=== PATIENT | female | born 1970 | race Caucasian/White ===

== ENCOUNTER 2017-11-04 15:46 | Inpatient (IN) | payer OTHER ==
[2017-11-04] MEDS ORDERED: diphenhydrAMINE 25 MG CAP PO PRN (18:05)
[2017-11-04] MEDS ORDERED: Ibuprofen 200 MG TAB PO PRN (18:05)
[2017-11-04] MEDS: HYDROcodone/Acetaminophen 10/325 mg Tablet PO PRN (19:22)
[2017-11-04 20:53] VITALS: BMI 36.0
[2017-11-04] MEDS ORDERED: Enoxaparin Sodium 100 MG/ML SYRINGE SC SCH (21:45)
[2017-11-04 21:52] LABS: Bilirubin Negative (Negative); Blood, Urine Trace (Negative); Clarity Clear (Clear); Glucose, Urine (Dipstick) Negative (Negative); Leukocyte Trace (Negative); Nitrite Positive (Negative); Protein, Urine (Dipstick) Negative (Neg-Trace); Specific Gravity, Urine 1.015 (1.005-1.030); Urobilinogen 0.2 mg/dL (0.2-1.0)
[2017-11-04] MEDS ORDERED: Ibuprofen 400 MG TAB PO PRN (22:00)
[2017-11-04] MEDS: DULoxetine 30 MG CAP PO SCH (22:09)
[2017-11-04] MEDS: Zolpidem Tartrate 5 MG TAB PO SCH (22:09)
[2017-11-04] MEDS ORDERED: Ibuprofen 200 MG TAB ONE ×2 (22:13)
[2017-11-04 22:19] LABS: Bacteria/HPF Rare-Few HPF (None Seen); RBC/HPF 0-3 HPF (0-3); Squamous Epithelial 0-3 HPF (0-3)
[2017-11-04] MEDS: Ibuprofen 200 MG TAB PO PRN (22:25)
[2017-11-05] MEDS: HYDROcodone/Acetaminophen 10/325 mg Tablet PO PRN ×4 (02:32→20:30)
[2017-11-05 06:03] LABS: #Basophils 0.1 thou/uL (0.0-0.2); #Eosinphils 0.2 thou/uL (0.0-0.7); #Lymphocytes 2.6 thou/uL (1.20-3.40); #Neutrophils 7.5 thou/uL (1.40-6.50); %Basophils 1.3 % (0.0-1.0); %Eosinophils 1.9 % (0.0-10.0); %Lymphocytes 22.8 % (21.0-51.0); %Monocytes 8.4 % (0.0-10.0); %Neutrophils 65.6 % (42.0-75.0); Hemoglobin 8.9 g/dL (12.0-16.0); Mean Corpuscular HGB CONC 32.3 g/dL (32.0-36.0); Mean Corpuscular Hemoglobin 29.8 pg (27.0-31.0); Mean Corpuscular Volume 92.2 fl (81.0-99.0); Mean Platelet Volume 6.3 fL (7.4-10.4); Platelet Count 607 thou/uL (130-400); RBC Distribution Width 14.4 % (11.5-14.5); Red Blood Cell (RBC) Count 2.97 mill/uL (4.20-5.40); White Blood Cell (WBC) Count 11.4 thou/uL (4.8-10.8)
[2017-11-05 06:16] LABS: ALT (SGPT) 16 U/L (8-55); AST (SGOT) 23 U/L (5-34); Albumin 2.8 g/dL (3.5-5.0); Alkaline Phosphatase 232 U/L (40-150); Anion Gap 12 mmol/L (10-20); BUN (Urea Nitrogen) 9 mg/dL (7.0-18.7); Bilirubin, Total 1.1 mg/dL (0.2-1.2); Calc. Creatinine Clearance 139 mL/min (70-130); Calcium 7.9 mg/dL (7.8-10.44); Carbon Dioxide 25 mmol/L (22-29); Chloride 108 mmol/L (98-107); Estimated GFR-MDRD 83; Globulin 3.5 g/dL (2.4-3.5); Glucose 105 mg/dL (70-105); Potassium 3.4 mmol/L (3.5-5.1); Protein, Total 6.3 g/dL (6.0-8.3); Sodium 142 mmol/L (136-145)
[2017-11-05] MEDS: DULoxetine 30 MG CAP PO SCH ×2 (09:15→20:30)
[2017-11-05] MEDS: Enoxaparin Sodium 100 MG/ML SYRINGE SC SCH ×2 (09:16→20:29)
[2017-11-05] MEDS: Ibuprofen 200 MG TAB PO PRN (17:37)
[2017-11-05] MEDS ORDERED: Warfarin Sodium 5 MG TAB PO SCH (18:30)
[2017-11-05] MEDS: Zolpidem Tartrate 5 MG TAB PO SCH (20:30)
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
[2017-11-06] MEDS: Ibuprofen 200 MG TAB PO PRN ×3 (01:34→20:07)
[2017-11-06] MEDS: HYDROcodone/Acetaminophen 10/325 mg Tablet PO PRN ×5 (03:07→22:46)
[2017-11-06] MEDS: DULoxetine 30 MG CAP PO SCH ×2 (09:11→20:07)
[2017-11-06] MEDS: Enoxaparin Sodium 100 MG/ML SYRINGE SC SCH (09:11)
[2017-11-06 14:37] LABS: INR-International Normal Ratio 2.3; Prothrombin Time 26.3 SEC (12.0-14.7)
[2017-11-06] MEDS ORDERED: Warfarin Sodium 5 MG TAB PO SCH (17:00)
[2017-11-06 17:41] LABS: INR-International Normal Ratio 2.1; Prothrombin Time 24.7 SEC (12.0-14.7)
[2017-11-06 17:50] LABS: ALT (SGPT) 28 U/L (8-55); AST (SGOT) 40 U/L (5-34); Albumin 3.2 g/dL (3.5-5.0); Alkaline Phosphatase 326 U/L (40-150); Bilirubin, Direct 0.6 mg/dL (0.1-0.3); Bilirubin, Total 1.2 mg/dL (0.2-1.2); Protein, Total 7.1 g/dL (6.0-8.3)
[2017-11-06] MEDS: Warfarin Sodium 5 MG TAB PO SCH (18:30)
[2017-11-06] MEDS: Zolpidem Tartrate 5 MG TAB PO SCH (20:07)
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
[2017-11-07] MEDS: HYDROcodone/Acetaminophen 10/325 mg Tablet PO PRN ×5 (03:34→21:06)
[2017-11-07 05:56] LABS: INR-International Normal Ratio 2.3; Prothrombin Time 26.2 SEC (12.0-14.7)
[2017-11-07] MEDS: DULoxetine 30 MG CAP PO SCH ×2 (08:19→20:07)
[2017-11-07] MEDS: Ibuprofen 200 MG TAB PO PRN (10:40)
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
[2017-11-07] MEDS: Warfarin Sodium 5 MG TAB PO SCH (17:20)
[2017-11-07] MEDS: Zolpidem Tartrate 5 MG TAB PO SCH (20:06)
[2017-11-08] MEDS: HYDROcodone/Acetaminophen 10/325 mg Tablet PO PRN ×5 (01:56→18:51)
[2017-11-08 05:56] LABS: INR-International Normal Ratio 2.2; Prothrombin Time 25.6 SEC (12.0-14.7)
[2017-11-08 06:04] LABS: #Basophils 0.1 thou/uL (0.0-0.2); #Eosinphils 0.2 thou/uL (0.0-0.7); #Lymphocytes 2.2 thou/uL (1.20-3.40); #Monocytes 1.1 thou/uL (0.11-0.59); #Neutrophils 7.8 thou/uL (1.40-6.50); %Basophils 0.8 % (0.0-1.0); %Lymphocytes 19.6 % (21.0-51.0); %Monocytes 9.2 % (0.0-10.0); %Neutrophils 68.5 % (42.0-75.0); Mean Corpuscular HGB CONC 32.7 g/dL (32.0-36.0); Mean Corpuscular Hemoglobin 29.8 pg (27.0-31.0); Mean Corpuscular Volume 91.3 fl (81.0-99.0); Mean Platelet Volume 6.6 fL (7.4-10.4); Platelet Count 706 thou/uL (130-400); Red Blood Cell (RBC) Count 3.35 mill/uL (4.20-5.40); White Blood Cell (WBC) Count 11.4 thou/uL (4.8-10.8)
[2017-11-08 06:08] LABS: Anion Gap 11 mmol/L (10-20); BUN (Urea Nitrogen) 12 mg/dL (7.0-18.7); Calc. Creatinine Clearance 147 mL/min (70-130); Calcium 8.7 mg/dL (7.8-10.44); Carbon Dioxide 26 mmol/L (22-29); Chloride 106 mmol/L (98-107); Estimated GFR-MDRD 88; Glucose 103 mg/dL (70-105); Potassium 3.5 mmol/L (3.5-5.1); Sodium 139 mmol/L (136-145)
[2017-11-08] MEDS: DULoxetine 30 MG CAP PO SCH ×2 (08:14→20:51)
[2017-11-08] MEDS: Warfarin Sodium 5 MG TAB PO SCH (16:56)
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
[2017-11-08] MEDS: Ibuprofen 200 MG TAB PO PRN (20:51)
[2017-11-08] MEDS: Zolpidem Tartrate 5 MG TAB PO SCH (20:51)
[2017-11-09] MEDS: HYDROcodone/Acetaminophen 10/325 mg Tablet PO PRN ×5 (03:34→18:52)
[2017-11-09] MEDS ORDERED: cefTRIAXone\\ROCEPHIN 1 GM in Sodium Chloride 0.9% 100 ML IVPB SCH (07:15)
[2017-11-09] MEDS ORDERED: Sterile Water 10 ML VIAL FS SCH ×3 (07:30→09:00)
[2017-11-09] MEDS ORDERED: cefTRIAXone\\ROCEPHIN 1 GM VIAL SLOW IVP SCH (09:00)
[2017-11-09] MEDS: Sterile Water 10 ML VIAL FS SCH (09:01)
[2017-11-09] MEDS: DULoxetine 30 MG CAP PO SCH ×2 (09:01→21:20)
[2017-11-09] MEDS: cefTRIAXone\\ROCEPHIN 1 GM VIAL SLOW IVP SCH (09:01)
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
[2017-11-09] MEDS: Ibuprofen 200 MG TAB PO PRN ×2 (13:28→21:20)
[2017-11-09] MEDS: Warfarin Sodium 5 MG TAB PO SCH (17:10)
[2017-11-09] MEDS: Zolpidem Tartrate 5 MG TAB PO SCH (21:20)
[2017-11-10] MEDS: HYDROcodone/Acetaminophen 10/325 mg Tablet PO PRN ×6 (00:28→20:58)
[2017-11-10] MEDS: Ibuprofen 200 MG TAB PO PRN ×2 (06:04→14:42)
[2017-11-10] MEDS: DULoxetine 30 MG CAP PO SCH ×2 (08:47→20:58)
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
[2017-11-10] MEDS: Sterile Water 10 ML VIAL FS SCH (09:56)
[2017-11-10] MEDS: cefTRIAXone\\ROCEPHIN 1 GM VIAL SLOW IVP SCH (09:56)
[2017-11-10] MEDS: Warfarin Sodium 5 MG TAB PO SCH (17:04)
[2017-11-10] MEDS: Zolpidem Tartrate 5 MG TAB PO SCH (20:57)
[2017-11-11] MEDS: HYDROcodone/Acetaminophen 10/325 mg Tablet PO PRN ×5 (01:28→19:57)
[2017-11-11] MEDS ORDERED: Sodium Chloride 0.9% 10 ML ONE (07:51)
[2017-11-11] MEDS: DULoxetine 30 MG CAP PO SCH ×2 (07:54→19:57)
[2017-11-11] MEDS: cefTRIAXone\\ROCEPHIN 1 GM VIAL SLOW IVP SCH (08:04)
[2017-11-11] MEDS: Sterile Water 10 ML VIAL FS SCH (08:05)
[2017-11-11] MEDS: Ibuprofen 200 MG TAB PO PRN ×2 (09:15→17:10)
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
[2017-11-11] MEDS: Warfarin Sodium 5 MG TAB PO SCH (17:10)
[2017-11-11] MEDS ORDERED: diphenhydrAMINE 25 MG CAP PO PRN (17:30)
[2017-11-11] MEDS: Zolpidem Tartrate 5 MG TAB PO SCH (19:57)
[2017-11-12] MEDS: HYDROcodone/Acetaminophen 10/325 mg Tablet PO PRN ×5 (03:07→21:29)
[2017-11-12 05:30] LABS: INR-International Normal Ratio 1.9; Prothrombin Time 22.7 SEC (12.0-14.7)
[2017-11-12] MEDS: Sterile Water 10 ML VIAL FS SCH (09:56)
[2017-11-12] MEDS: Ibuprofen 200 MG TAB PO PRN (09:56)
[2017-11-12] MEDS: cefTRIAXone\\ROCEPHIN 1 GM VIAL SLOW IVP SCH (09:56)
[2017-11-12] MEDS: DULoxetine 30 MG CAP PO SCH ×2 (09:56→21:28)
[2017-11-12] MEDS ORDERED: Warfarin Sodium 5 MG TAB PO SCH (10:20)
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
--- NOTE | 2017-11-12 12:00 | RAD ---
PORTABLE UPRIGHT FRONTAL CHEST RADIOGRAPH: DATE: 11/12/17. COMPARISON: 02/25/09. HISTORY: Rib fracture and pneumothorax. FINDINGS: No discrete displaced rib fracture is noted on either side. There is no pneumothorax noted. No foca l consolidation or alveolar edema. No large volume pleural effusion. There is elevation of the righ t hemidiaphragm, stable. IMPRESSION: No acute findings. POS: [facility]
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
[2017-11-12] MEDS: Warfarin Sodium 3 MG TAB PO SCH (17:15)
[2017-11-12] MEDS: Zolpidem Tartrate 5 MG TAB PO SCH (21:28)
[2017-11-13] MEDS: HYDROcodone/Acetaminophen 10/325 mg Tablet PO PRN ×5 (03:15→20:41)
[2017-11-13 05:38] LABS: INR-International Normal Ratio 1.8; Prothrombin Time 21.7 SEC (12.0-14.7)
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
[2017-11-13] MEDS: DULoxetine 30 MG CAP PO SCH ×2 (09:27→20:40)
[2017-11-13] MEDS: cefTRIAXone\\ROCEPHIN 1 GM VIAL SLOW IVP SCH (09:27)
[2017-11-13] MEDS: Sterile Water 10 ML VIAL FS SCH (09:28)
[2017-11-13] MEDS: Warfarin Sodium 3 MG TAB PO SCH (16:15)
[2017-11-13] MEDS: Zolpidem Tartrate 5 MG TAB PO SCH (20:41)
[2017-11-13] MEDS: Ibuprofen 200 MG TAB PO PRN (21:04)
[2017-11-14] MEDS: HYDROcodone/Acetaminophen 10/325 mg Tablet PO PRN ×5 (05:15→21:31)
[2017-11-14 05:28] LABS: INR-International Normal Ratio 1.9; Prothrombin Time 22.1 SEC (12.0-14.7)
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
[2017-11-14] MEDS: DULoxetine 30 MG CAP PO SCH ×2 (09:17→21:30)
[2017-11-14] MEDS: cefTRIAXone\\ROCEPHIN 1 GM VIAL SLOW IVP SCH (09:17)
[2017-11-14] MEDS: Sterile Water 10 ML VIAL FS SCH (09:18)
[2017-11-14] MEDS: Warfarin Sodium 3 MG TAB PO SCH (16:42)
[2017-11-14] MEDS: Zolpidem Tartrate 5 MG TAB PO SCH (21:30)
[2017-11-14] MEDS: Ibuprofen 200 MG TAB PO PRN (21:30)
[2017-11-14 23:41] LABS: #Basophils 0.1 thou/uL (0.0-0.2); #Eosinphils 0.3 thou/uL (0.0-0.7); #Lymphocytes 3.2 thou/uL (1.20-3.40); #Neutrophils 6.7 thou/uL (1.40-6.50); %Basophils 0.8 % (0.0-1.0); %Eosinophils 2.7 % (0.0-10.0); %Lymphocytes 28.8 % (21.0-51.0); %Monocytes 8.5 % (0.0-10.0); %Neutrophils 59.2 % (42.0-75.0); Hemoglobin 9.6 g/dL (12.0-16.0); Mean Corpuscular HGB CONC 33.9 g/dL (32.0-36.0); Mean Corpuscular Hemoglobin 30.4 pg (27.0-31.0); Mean Corpuscular Volume 89.7 fl (81.0-99.0); Platelet Count 459 thou/uL (130-400); RBC Distribution Width 13.6 % (11.5-14.5); Red Blood Cell (RBC) Count 3.15 mill/uL (4.20-5.40); White Blood Cell (WBC) Count 11.3 thou/uL (4.8-10.8)
[2017-11-15 00:03] VITALS: BP 144/88; TEMP 98.7
--- NOTE | 2017-11-15 00:11 | CT ---
NONCONTRAST CT HEAD: Date: 11-14-17 History: Head swelling, severe headache. Comparison: None available. FINDINGS: There is a large mixed density anterior and anterolateral left frontal scalp hematoma which extends f rom the level of the frontal sinuses superiorly to the vertex. There is no underlying calvarial fract ure identified. Visualized paranasal sinuses are clear. The right mastoid air cells are clear. There is suggestion of minimal opacification of a few inferior left mastoid air cells. There is no evidence of an intraparenchymal or extraaxial hemorrhage. No acute infarction, mass effec t, or midline shift is seen. The ventricular system is normal in size, shape, and position. IMPRESSION: 1. Large left frontal scalp hematoma. No underlying calvarial fracture is seen. 2. No acute intracranial abnormality is demonstrated. POS: [facility]
[2017-11-15] MEDS ORDERED: Sodium Chloride 0.9% 20 ML ONE (00:32)
[2017-11-15] MEDS ORDERED: Ondansetron HCl/PF 4 MG/2 ML Vial IVP PRN (00:34)
[2017-11-15] MEDS ORDERED: Ondansetron ODT 4 MG TAB PO PRN (00:34)
[2017-11-15] MEDS: HYDROcodone/Acetaminophen 10/325 mg Tablet PO PRN (00:35)
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
== END 2017-11-15 00:59 | disposition short-term general hospital (02) | DRG 699 ==
LOC: NAV ACUTE 15:46
PROVIDERS: ADMIT Internal Medicine; ATTEND Internal Medicine
DX: T83.511A Infection and inflammatory reaction due to indwelling urethral catheter, initial encounter (principal); I82.403 Acute embolism and thrombosis of unspecified deep veins of lower extremity, bilateral; S27.0XXD Traumatic pneumothorax, subsequent encounter; S22.49XD Multiple fractures of ribs, unspecified side, subsequent encounter for fracture with routine healing; S72.141E Displaced intertrochanteric fracture of right femur, subsequent encounter for open fracture type I or II with routine healing; S82.202D Unspecified fracture of shaft of left tibia, subsequent encounter for closed fracture with routine healing; S52.501D Unspecified fracture of the lower end of right radius, subsequent encounter for closed fracture with routine healing; V49.9XXD Car occupant (driver) (passenger) injured in unspecified traffic accident, subsequent encounter; S36.116D Major laceration of liver, subsequent encounter; E66.9 Obesity, unspecified; Z68.36 Body mass index [BMI] 36.0-36.9, adult; B96.89 Other specified bacterial agents as the cause of diseases classified elsewhere; S00.03XA Contusion of scalp, initial encounter
CPT/HCPCS: 36415; 70450; 71045; 80048; 80053; 80076; 81003; 81015; 85025; 85610; 87077; 87086; 87186; A4216; G8981-GP-CL; G8982-GP-CI; J0696; J1650; J2405